=== PATIENT | male | born 1945 | race Caucasian/White ===

== ENCOUNTER 2020-03-01 09:03 | Day surgery (SDC) | payer MEDICARE, OTHER ==
[2020-03-01] MEDS: Polymyxin B/Trimethoprim 10 ML Bottle EYERT SCH ×4 (09:41→11:34)
[2020-03-01] MEDS: Brimonidine 0.2% Ophth Soln 5 ML Bottle EYERT SCH ×4 (09:47→11:34)
[2020-03-01] MEDS: Phenylephrine 2.5% Ophth Soln 2 ML Bot EYERT SCH ×5 (09:52→11:05)
[2020-03-01] MEDS: Tropicamide 1% Ophth Soln 15 ML Bottle EYERT SCH ×4 (09:57→10:41)
--- NOTE | 2020-03-01 10:12 | PCM.PREANE ---
Preanesthetic Assessment - Procedure Proposed Procedure: Right eye cataract with IOL - Anesthesia/Transfusion/Family Hx Anesthesia History: Prior Anesthesia Without Reaction Family History of Anesthesia Reaction: No Transfusion History: No Prior Transfusion(s) - Review of Systems General: No Symptoms Pulmonary: No Symptoms Cardiovascular: No Symptoms Gastrointestinal: No Symptoms Neurological: No Symptoms Other: Reports: None - Physical Assessment NPO Status Date: 02/29/20 NPO Status Time: 19:00 Vital Signs: Last Vital Signs Temp 36.3 C 03/01/20 09:40 Pulse 66 03/01/20 09:40 Resp 16 03/01/20 09:40 BP 108/59 L 03/01/20 09:40 Pulse Ox 96 03/01/20 09:40 Height: 1.7 m Weight: 72.575 kg ASA Class: 2 Mental Status: Alert & Oriented x3 Airway Class: Mallampati = 1 Dentition: Reports: Normal Dentition, [place]ose(s), Caries Thyro-Mental Finger Breadths: 3 Mouth Opening Finger Breadths: 3 ROM/Head Extension: Full Lungs: Clear to Auscultation, Normal Respiratory Effort Cardiovascular: Regular Rate, Regular Rhythm - Allergies Allergies/Adverse Reactions: Allergies Allergy/AdvReac Type Severity Reaction Status Date / Time No Known Allergies Allergy Verified 02/29/20 15:52 - Blood Blood Available: No Product(s) Available: None - Anesthesia Plan Pre-Op Medication Ordered: Beta Pablo Beta Pablo: Metoprolol Med Last Dose Date: 03/01/20 Med Last Dose Time: 06:00 - Acknowledgements Anesthesia Type Planned: MAC Pt an Appropriate Candidate for the Planned Anesthesia: Yes Alternatives and Risks of Anesthesia Discussed w Pt/Guardian: Yes Pt/Guardian Understands and Agrees with Anesthesia Plan: Yes PreAnesthesia Questionnaire Gastrointestinal History: Reports: GERD - HOME MEDS Home Medications: Home Meds Aspirin [Halfprin] 81 mg PO DAILY 02/29/20 [History] Carboxymethylcellulose Sodium [Artificial Tears] 1 dose EYEBOTH ASDIRECTED PRN 02/29/20 [History] Losartan Potassium 100 mg PO DAILY 02/29/20 [History] Metoprolol Succinate 50 mg PO DAILY 02/29/20 [History] Rosuvastatin Calcium 5 mg PO DAILY 02/29/20 [History] - CURRENT (IN HOUSE) MEDS Current Meds: Current Medications Brimonidine Tartrate (Alphagan 0.2% Ophth Soln) 0 ml EYERT ASDIRECTED ROLAND Stop: 03/01/20 18:00 Last Admin: 03/01/20 09:47 Dose: 1 drop Documented by: Cefuroxime Sodium (Zinacef) 0 mg EYERT ASDIRECTED ROLAND Stop: 03/01/20 18:00 Lidocaine HCl (Xylocaine-Mpf 1%) 0 ml INJECT ASDIRECTED ROLAND Stop: 03/01/20 18:00 Phenylephrine HCl (Sonny-Synephrine 2.5% Oph Soln) 0 ml EYERT ASDIRECTED ROLAND Stop: 03/01/20 18:00 Last Admin: 03/01/20 10:05 Dose: 1 drop Documented by: Pilocarpine HCl (Pilocar 4% Oph Soln) 0 ml EYERT ASDIRECTED ROLAND Stop: 03/01/20 18:00 Polymyxin/Trimethoprim Sulfate (Polytrim Ophth Soln) 0 ml EYERT ASDIRECTED ROLAND Stop: 03/01/20 18:00 Last Admin: 03/01/20 09:41 Dose: 1 drop Documented by: Tetracaine HCl (Tetracaine 0.5% Steri-Unit Leonie) 0 ml EYEBOTH ASDIRECTED ROLAND Stop: 03/01/20 18:00 Tropicamide (Mydriacyl 1% Oph Soln) 0 ml EYERT ASDIRECTED ROLAND Stop: 03/01/20 18:00 Last Admin: 03/01/20 09:57 Dose: 1 drop Documented by:
[2020-03-01] MEDS: Tetracaine HCl/PF 0.5% 4 ML Bottle EYEBOTH SCH ×3 (10:55→11:17)
[2020-03-01] MEDS: Lidocaine 1% PF 2 ML SDV INJECT SCH ×2 (11:11→11:17)
[2020-03-01] MEDS: Cefuroxime 10 MG/ML SYRINGE EYERT SCH ×2 (11:17→11:32)
--- NOTE | 2020-03-01 11:17 | PCM48HPAN ---
Post Anesthesia Note - EVALUATION WITHIN 48HRS OF ANESTHETIC Vital Signs in Normal Range: Yes Patient Participated in Evaluation: Yes Respiratory Function Stable: Yes Airway Patent: Yes Cardiovascular Function Stable: Yes Hydration Status Stable: Yes Pain Control Satisfactory: Yes Nausea and Vomiting Control Satisfactory: Yes Mental Status Recovered: Yes Vital Signs: Last Vital Signs Temp 36.3 C 03/01/20 09:40 Pulse 66 03/01/20 09:40 Resp 16 03/01/20 09:40 BP 108/59 L 03/01/20 09:40 Pulse Ox 96 03/01/20 09:40
[2020-03-01] MEDS: Pilocarpine 4% Ophth Soln 15 ML Bot EYERT SCH ×2 (11:18→11:34)
== END 2020-03-01 11:47 | disposition home or self-care (01) ==
LOC: JD.SDS 09:03
PROVIDERS: ATTEND Ophthalmology
DX: T85.29XA Other mechanical complication of intraocular lens, initial encounter (principal); H26.8 Other specified cataract; D31.31 Benign neoplasm of right choroid; H40.1134 Primary open-angle glaucoma, bilateral, indeterminate stage; I10 Essential (primary) hypertension; Z96.1 Presence of intraocular lens; Z79.82 Long term (current) use of aspirin; Z79.899 Other long term (current) drug therapy; Z87.891 Personal history of nicotine dependence; Z86.69 Personal history of other diseases of the nervous system and sense organs
CPT/HCPCS: 66986; J0697; J2001; V2632

== ENCOUNTER → 2020-08-28 | Day surgery (SDC) | payer MEDICARE, OTHER ==
[~2020-08-28] MED LIST: Phenylephrine 2.5% Ophth Soln 15 ML Bot EYERT SCH; Tropicamide 1% Ophth Soln 15 ML Bottle EYERT SCH
[2020-08-28] MEDS: Brimonidine 0.2% Ophth Soln 5 ML Bottle EYERT SCH ×2 (10:40→11:28)
== END ==
LOC: JD.SDS 10:37
PROVIDERS: ATTEND Ophthalmology
DX: H26.491 Other secondary cataract, right eye (principal); I10 Essential (primary) hypertension; D31.31 Benign neoplasm of right choroid; H40.1134 Primary open-angle glaucoma, bilateral, indeterminate stage; H16.103 Unspecified superficial keratitis, bilateral; H16.223 Keratoconjunctivitis sicca, not specified as Sjogren's, bilateral; H02.834 Dermatochalasis of left upper eyelid; H02.831 Dermatochalasis of right upper eyelid; Z86.73 Personal history of transient ischemic attack (TIA), and cerebral infarction without residual deficits; Z98.890 Other specified postprocedural states; Z79.82 Long term (current) use of aspirin; Z79.899 Other long term (current) drug therapy; Z96.1 Presence of intraocular lens

== ENCOUNTER → 2025-06-06 | Day surgery (SDC) | payer MEDICARE, OTHER ==
[~2025-06-06] MED LIST changes: -Phenylephrine 2.5% Ophth Soln 15 ML Bot EYERT SCH; +Propofol 200 MG/20 ML SDV ONE; +Sodium Chloride 0.9% 10 ML Syringe FLUSH PRN; +Sodium Chloride 0.9% 10 ML Syringe FLUSH SCH; -Tropicamide 1% Ophth Soln 15 ML Bottle EYERT SCH
[2025-06-06] MEDS: Lactated Ringers 1,000 ML IV SCH (08:00)
== END | disposition home or self-care (01) ==
LOC: JD.SDS 07:35
PROVIDERS: ATTEND Surgery
DX: K21.9 Gastro-esophageal reflux disease without esophagitis (principal); K44.9 Diaphragmatic hernia without obstruction or gangrene; I25.10 Atherosclerotic heart disease of native coronary artery without angina pectoris; I10 Essential (primary) hypertension; E66.3 Overweight; Z79.82 Long term (current) use of aspirin; Z68.26 Body mass index [BMI] 26.0-26.9, adult; Z79.899 Other long term (current) drug therapy
CPT/HCPCS: 43239; 88305; C9777; J2704; J7120; 00731; 43499; 99100

== ENCOUNTER 2025-07-12 10:29 | Inpatient (IN) | payer MEDICARE, OTHER ==
[~2025-07-12 10:29] MED LIST changes: +Dexamethasone 4 MG/ML 5 ML MDV ONE; +Ketamine HCL/NACL, ISO-OSM 50 MG/5 ML Syringe ONE; +Ondansetron 4 MG/2 ML SDV ONE; +Phenylephrine 1% 10 MG/ML SDV ONE; -Sodium Chloride 0.9% 10 ML Syringe FLUSH SCH; +dexmedeTOMIDine HCl 200 MCG/2 ML SDV ONE; +fentaNYL 250 MCG/5 ML SDV ONE
[2025-07-12] MEDS ORDERED: Ketorolac 15 MG/ML SDV ONE (11:05)
[2025-07-12] MEDS ORDERED: Ketorolac 30 MG/ML SDV ONE (11:05)
[2025-07-12] MEDS: Lactated Ringers 1,000 ML IV SCH ×2 (11:06→16:25)
[2025-07-12] MEDS ORDERED: fentaNYL 100 MCG/2 ML SDV IVPUSH PRN (11:27)
[2025-07-12] MEDS ORDERED: Ondansetron 4 MG/2 ML SDV IVPUSH PRN (11:27)
[2025-07-12] MEDS ORDERED: Lactated Ringers 1,000 ML ONE ×2 (11:31→12:56)
[2025-07-12] MEDS: EPINEPHrine 1 MG/ML SDV ONE (12:17)
[2025-07-12] MEDS ORDERED: Ondansetron 4 MG/2 ML SDV IV PRN (14:29)
[2025-07-12] MEDS ORDERED: Benzocaine/Cetylpyridinium/Menthol Lozenge MUCMEM PRN (14:36)
[2025-07-12] MEDS ORDERED: diphenhydrAMINE 50 MG/ML SDV IVPUSH PRN (14:36)
[2025-07-12] MEDS: Sodium Chloride 0.9% 10 ML Syringe FLUSH SCH (21:52)
[2025-07-13 05:43] LABS: MEAN PLATELET VOLUME 9.4 fl (9.4-12.4); NRBC ABSOLUTE 0.00 (0.00-0.02); NRBC PERCENT 0.0 % (0.0-0.2); PLATELET COUNT,PLT 187 K/mm3 (150-400); RED BLOOD CELL COUNT 4.55 M/mm3 (4.52-5.90); WHITE BLOOD CELL COUNT,WBC 12.09 K/mm3 (3.9-11.3)
[2025-07-13 06:19] LABS: BLOOD UREA NITROGEN,BUN 20.0 mg/dL (7-18); CARBON DIOXIDE,CO2 24.0 mEq/L (21-32); CHLORIDE,CL 105.0 mEq/L (98-107); CREATININE 1.1 mg/dL (0.7-1.3); EST CRCL DRUG DOSING (CG) 51.74 mL/min; ESTIMATED GFR 69.0 mL/min (>60); GLUCOSE RANDOM 127.0 mg/dL (70-99); POTASSIUM,K 4.2 mEq/L (3.5-5.1); SODIUM,NA 140.0 mEq/L (136-145)
[2025-07-13] MEDS: Mirabegron 25 MG Tab Extended Release PO SCH (09:20)
== END 2025-07-13 14:45 | disposition home or self-care (01) | DRG 328 ==
LOC: JD.MS 10:29
PROVIDERS: ADMIT Surgery; ATTEND Surgery
PROC: 0BUT4JZ Supplement Diaphragm with Synthetic Substitute, Percutaneous Endoscopic Approach (ICD-10-PCS; 2025-07-12)
PROC: 0DV44ZZ Restriction of Esophagogastric Junction, Percutaneous Endoscopic Approach (ICD-10-PCS; principal; 2025-07-12 13:00)
DX: K44.9 Diaphragmatic hernia without obstruction or gangrene (principal); Z98.890 Other specified postprocedural states; M19.90 Unspecified osteoarthritis, unspecified site; K21.9 Gastro-esophageal reflux disease without esophagitis; I10 Essential (primary) hypertension; E78.00 Pure hypercholesterolemia, unspecified; H26.9 Unspecified cataract; I50.9 Heart failure, unspecified; G47.33 Obstructive sleep apnea (adult) (pediatric); E66.3 Overweight; Z99.89 Dependence on other enabling machines and devices; Z68.27 Body mass index [BMI] 27.0-27.9, adult; Z87.39 Personal history of other diseases of the musculoskeletal system and connective tissue; Z85.46 Personal history of malignant neoplasm of prostate; Z79.82 Long term (current) use of aspirin; Z79.899 Other long term (current) drug therapy; I25.2 Old myocardial infarction; Z98.49 Cataract extraction status, unspecified eye
CPT/HCPCS: 00790; 36415; 80048; 85027; 94761; 99100; A9270-GY; C1781; J0169; J0665; J0690; J1100; J1171; J1885; J2371; J2405; J2704; J3010; J3490; J7120